=== PATIENT | male | born 1990 | race African-American/Black ===

== ENCOUNTER 2019-04-21 21:00 | Emergency (ER) | payer SELFPAY ==
[~2019-04-21] VITALS: Ht 188 cm; Wt 85.7 kg
[2019-04-21 21:05] VITALS: BP 139/88
--- NOTE | 2019-04-21 21:07 | NUR ---
ED Nurse Note: Patient in chair 1 accompanied by
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
[2019-04-21 21:15] VITALS: BP 139/88
--- NOTE | 2019-04-21 21:16 | NUR ---
ER DISCHARGE NOTE: Patient is cleared to be discharged per ERMD, pt is aox4, on room air, with stable vital signs. pt was given dc and prescription instructions, pt was able to verbalize understanding, pt id band removed without complications. pt is able to ambulate with steady gait. pt took all belongings. Patient accompanied by at [facility].
== END 2019-04-21 21:35 ==
LOC: EMR 21:30
DX: S40.812A Abrasion of left upper arm, initial encounter (principal); W34.00XA Accidental discharge from unspecified firearms or gun, initial encounter; Y92.9 Unspecified place or not applicable
CPT/HCPCS: 99282